=== PATIENT | male | born 1945 | race Caucasian/White ===

== ENCOUNTER 2018-08-19 13:03 | Outpatient (CLI) | payer MEDICARE ==
--- NOTE | 2018-08-19 17:35 | Diagnostic Imaging Report ---
ESVIN ESPOSITO (BRISA) - OP [facility] [id number] [facility].[address] [id number] Report Submission Date: Aug 19, 2018 5:25:49 PM WEB KNITTER Patient Study Name: NAINA ZABALA Date: Aug 19, 2018 1:11:43 PM WEB KNITTER Modality Type: DX Gender: M Description: ABD COMPLETE : 45 Institution: [facility] Physician: ESVIN ESPOSITO (BRISA) - OP Examination: Abdomen History: EVALUATE BOWEL PATTERN. CONSTIPATION X 2 MONTHS Findings: 4 views obtained of the abdomen. No abnormal dilation of the large or small bowel. Air and stool throughout the large bowel. No suspicious calcification projecting over the renal fossa or the lower pelvic region. Pelvic phleboliths. Osseous structures are appropriate for age. Impression: No bowel obstruction. No suspicious calcifications by plain film sensitivity. Electronically signed on Aug 19, 2018 5:25:49 PM WEB KNITTER by: Eddie PEDERSON
== END 2018-08-19 13:05 ==
LOC: RAD 13:03
PROVIDERS: ATTEND Nurse Practitioner Family
DX: R10.84 Generalized abdominal pain (principal)
CPT/HCPCS: 74019

== ENCOUNTER 2019-05-26 14:01 | Outpatient (CLI) | payer MEDICARE ==
--- NOTE | 2019-05-26 15:04 | Diagnostic Imaging Report ---
PATIENT MR#: [id number] PATIENT PATIENT NAME: NAINA ZABALA DATE OF : 1945 REFERRING PHYSICIAN: Sheba Mayberry EXAM DATE: 05/26/2019 ACCESSION NUMBER: [id number] EXAM DESCRIPTION: ABD COMPLETE Examination: Obstruction series History: ABDOMINAL PAIN AND BOWEL ISSUES X 1 YEAR Findings: 4 views obtained of the chest and abdomen. No abnormal dilation of the large or small bowel . Air and stool throughout the large bowel. No suspicious calcification projecting over the renal fossa or the lower pelvic region. Lumbar spine degenerative changes. Lung interstitial prominence with blunting of the right lung base/ costophrenic margins. Impression: Air filled loops of large and small bowel without abnormal dilation. Lung base scarring/linear infiltrates, right greater than left. Read by: Dr. Eddie Sherwood Transcribed by: Transcribed Date: Electronically signed by: Dr. Eddie Sherwood Date signed: 05/26/2019 3:03:35 PM
== END 2019-05-26 14:15 ==
LOC: RAD 14:01
PROVIDERS: ATTEND Nurse Practitioner Family
DX: R10.9 Unspecified abdominal pain (principal); R19.4 Change in bowel habit
CPT/HCPCS: 74019